=== PATIENT | female | born 1980 | race Caucasian/White ===

== ENCOUNTER 2019-10-01 13:28 | Inpatient (IN) | payer OTHER ==
--- NOTE | 2019-10-01 16:25 | BHS.RME ---
Substance Use & Tx History - Substance Use History Alcohol Substance amount: 1 pint vodka, 6 cans beers Frequency of use: Daily (x 5 months) Substance route: Oral Date of Last Use: 09/30/19 (11:30 p.m. ) Cocaine (Powder) Substance amount: 2 bags Frequency of use: Less than 3 times per week Substance route: Inhalation (ex: sniffing or snorting) Date of Last Use: 10/01/19 (7 a.m.) Opiates (Other) Substance amount: 16 mg Suboxone - Prescribed Frequency of use: Daily Substance route: Oral (Sublingual) Date of Last Use: 10/01/19 (9 a.m. ) Cannabis Substance amount: a few pulls Frequency of use: Less than 3 times per week Substance route: Inhalation (ex: sniffing or snorting) Date of Last Use: 09/29/19 - Last Treatment Date of last treatment: 2018 Treatment type: Substance Use Disorder (BHAVYA) Where was last treatment: [facility]ox ([facility] for [facility] and cocaine) Physical/Psych/Mental Status - Behavior Eye Contact: Normal - Cooperativeness Cooperativeness: Cooperative - Thinking Thought Processes: Goal Directed Thought content: Future oriented - Physical Health Problems Is patient presently having any pain?: No (Back and ovaries - chronic) Does patient presently have any injuries (include location): No Does patient currently have a fever: No Is patient : No CIWA Nausea/Vomitin-Mild Nausea/No Vomiting Muscle Tremors: 4-Moderate,w/Arms Extend Anxiety: 2 Agitation: 1-Slight > Activity Paroxysmal Sweats: No Perspiration Orientation: 0-Oriented Tacttile Disturbances: 0-None Auditory Disturbances: 0-None Visual Disturbances: 0-None Headache: 0-None Present CIWA-Ar Total Score: 8
[2019-10-01 16:58] VITALS: BMI 30.1
--- NOTE | 2019-10-01 18:04 | HP ---
CIWA Score Nausea/Vomitin-Mild Nausea/No Vomiting Muscle Tremors: 4-Moderate,w/Arms Extend Anxiety: 2 Agitation: 1-Slight > Activity Paroxysmal Sweats: 2 Orientation: 0-Oriented Tacttile Disturbances: 0-None Auditory Disturbances: 0-None Visual Disturbances: 0-None Headache: 3-Moderate CIWA-Ar Total Score: 13 - Admission Criteria OASAS Guidelines: Admission for Medically Managed Detox: Requires at least one of the followin. CIWA greater than 12 2. Seizures within the past 24 hours 3. Delirium tremens within the past 24 hours 4. Hallucinations within the past 24 hours 5. Acute intervention needed for co occurring medical disorder 6. Acute intervention needed for co occurring psychiatric disorder 7. Severe withdrawal that cannot be handled at a lower level of care (continued vomiting, continued diarrhea, abnormal vital signs) requiring intravenous medication and/or fluids 8. Patient presents the following: CIWA greater than 12 Admission Criteria Met: Admission criteria met Admission ROS BHS - HPI Chief Complaint: I want to stop using drugs and drinking. Allergies/Adverse Reactions: Allergies Allergy/AdvReac Type Severity Reaction Status Date / Time No Known Allergies Allergy Verified 10/01/19 18:12 History of Present Illness: 39 year old woman presents to this facility for the fisrt time for alcohol detox. She reports her last treatment was at the addiction institute at [facility]. She is on suboxone 8mg BID. Exam Limitations: No Limitations - Ebola screening Have you traveled outside of the country in the last 21 days: No Have you had contact with anyone from an Ebola affected area: No Have you been sick,other than usual withdrawal symptoms: No Do you have a fever: No - Review of Systems Constitutional: Chills, Night Sweats, Weight Stable EENT: reports: Dental Problems (pain) Respiratory: reports: SOB with Exertion Cardiac: reports: Edema (to bilateral LE, chronic for the past 21 years) GI: reports: Nausea, Poor Fluid Intake, Vomiting, Indigestion, Abdominal cramping : reports: No Symptoms Reported Musculoskeletal: reports: Back Pain, Joint Pain, Muscle Weakness Integumentary: reports: Sweating Neuro: reports: Headache, Tremors Endocrine: reports: No Symptoms Reported Hematology: reports: Anemia Psychiatric: reports: Anxious, Depressed Other Systems: Reviewed and Negative Patient History - Patient Medical History Hx Anemia: No Hx Asthma: Yes Hx Chronic Obstructive Pulmonary Disease (COPD): No Hx Cancer: No Hx Cardiac Disorders: No Hx Congestive Heart Failure: No Hx Hypertension: No Hx Hypercholesterolemia: No Hx Pacemaker: No HX Cerebrovascular Accident: No Hx Seizures: No Hx Dementia: No Hx Diabetes: No Hx Gastrointestinal Disorders: Yes (GERD) Hx Liver Disease: No Hx Genitourinary Disorders: No Hx Sexually Transmitted Disorders: No Hx Renal Disease (ESRD): No Hx Thyroid Disease: No Hx Human Immunodeficiency Virus (HIV): No Hx Hepatitis C: No Hx Depression: Yes Hx Suicide Attempt: Yes (in 2019, took any pills, denies SI now) Hx Bipolar Disorder: Yes Hx Schizophrenia: No - Patient Surgical History Past Surgical History: Yes Hx Abdominal Surgery: Yes (gastric bypass in 2011) Anesthesia Reaction: No - PPD History Previous Implant?: Yes Documented Results: Positive w/o proof Implanted On Prior R Admission?: No PPD to be Administered?: No - Reproductive History Patient is a Female of Child Bearing Age (11 -55 yrs old): Yes Last Menstrual Period: 09/15/19 Patient : No - Smoking Cessation Smoking history: Current every day smoker Have you smoked in the past 12 months: Yes Aproximately how many cigarettes per day: 10 Hx Chewing Tobacco Use: No Initiated information on smoking cessation: Yes 'Breaking Loose' booklet given: 10/01/19 - Substances abused Alcohol Substance route: Oral Frequency: Daily Amount used: 1 P[place]ODKA Age of first use: 16 Date of last use: 09/30/19 Admission Physical Exam BHS - Vital Signs Vital Signs: Vital Signs - 24 hr 10/01/19 16:56 Temperature 96.6 F L Pulse Rate 68 Respiratory 16 Rate Blood Pressure 116/77 - Physical General Appearance: Yes: No Apparent Distress HEENTM: Yes: Hearing grossly Normal, Normocephalic, Normal Voice, Pharynx Normal Respiratory: Yes: Chest Non-Tender, Lungs Clear, Normal Breath Sounds, No Respiratory Distress, No Accessory Muscle Use Neck: Yes: No masses,lesions,Nodules, Supple Breast: Yes: Breast Exam Deferred Cardiology: Yes: Regular Rhythm, Regular Rate, S1, S2 Abdominal: Yes: Normal Bowel Sounds, Soft Genitourinary: Yes: Within Normal Limits Back: Yes: Normal Inspection Musculoskeletal: Yes: full range of Motion, Gait Steady, Back pain, Muscle Pain, Muscle weakness Extremities: Yes: Tremors, Pedal Edema Neurological: Yes: well digger II-XII NML intact, Fully Oriented, Alert, Normal Mood/Affect, Normal Response Integumentary: Yes: Moist, Pitting Edema Lymphatic: Yes: Within Normal Limits - Diagnostic (1) Alcohol dependence, uncomplicated Current Visit: Yes Status: Acute (2) Nicotine dependence Current Visit: Yes Status: Acute Qualifiers: Nicotine product type: cigarettes Substance use status: uncomplicated Qualified Code(s): F17.210 - Nicotine dependence, cigarettes, uncomplicated (3) Cocaine abuse Current Visit: Yes Status: Acute (4) Marijuana abuse Current Visit: Yes Status: Acute (5) Encounter for monitoring Suboxone maintenance therapy Current Visit: Yes Status: Chronic Cleared for Admission S - Detox or Rehab [facility] Level of Care: Medically Managed Detox Regimen/Protocol: Librium Claeared for Rehab Admission: No Breathalyzer - Breathalyzer Breathalyzer: 0 Urine Drug Screen - Test Device Lot number: [id number] Expiration date: 06/24/21 - Control Is test valid?: Yes - Results Drug screen NEGATIVE: No Urine drug screen results: THC-Marijuana, OUMAR-Cocaine, BUP-Suboxone Inpatient Rehab Admission - Rehab Decision to Admit Inpatient rehab admission?: No
[2019-10-01] MEDS ORDERED: MAG HYDROX/AL HYDROX/SIMETH 30 ML UNIT-DOSE CUP PO PRN (18:12)
[2019-10-01] MEDS ORDERED: ONDANSETRON *ODT* 4 MG TABLET SL ONE (18:12)
[2019-10-01] MEDS ORDERED: ACETAMINOPHEN 325 MG TABLET (FP) PO PRN ×2 (18:12)
[2019-10-01] MEDS ORDERED: MAGNESIUM CITRATE 300 ML BOTTLE PO PRN (18:12)
[2019-10-01] MEDS ORDERED: MENTHOL/PHENOL 1 EACH UD MM PRN (18:12)
[2019-10-01] MEDS ORDERED: BISMUTH SUBSALICYLATE 524 MG/30 ML UD PO PRN (18:12)
[2019-10-01] MEDS ORDERED: chlordiazePOXIDE HCL 10 MG CAPSULE PO PRN (18:12)
[2019-10-01] MEDS ORDERED: MAGNESIUM HYDROX 2400MG/30ML ORAL SUSPENSION 30 ML CUP PO PRN (18:12)
[2019-10-01] MEDS: IBUPROFEN 400 MG TABLET (FP) PO PRN (19:13)
[2019-10-01] MEDS ORDERED: MELATONIN 5 MG TABLETS PO SCH (22:00)
[2019-10-01] MEDS: BUPRENORPHINE/NALOXONE 8 MG/2 MG FILM PACKET SL SCH (22:37)
[2019-10-01] MEDS: THIAMINE HCL 100 MG TABLET (FP) PO SCH (22:38)
[2019-10-01] MEDS: hydrOXYzine PAMOATE 25 MG CAPSULE (FP) PO SCH (22:38)
[2019-10-01] MEDS: chlordiazePOXIDE HCL 25 MG CAPSULE PO SCH (22:38)
[2019-10-01] MEDS: METHOCARBAMOL 500 MG TABLET PO PRN (22:39)
[2019-10-02] MEDS: hydrOXYzine PAMOATE 25 MG CAPSULE (FP) PO SCH ×2 (06:41→10:53)
[2019-10-02] MEDS: IBUPROFEN 400 MG TABLET (FP) PO PRN ×2 (06:41→14:51)
[2019-10-02] MEDS: chlordiazePOXIDE HCL 25 MG CAPSULE PO SCH ×3 (06:41→22:35)
[2019-10-02] MEDS ORDERED: IBUPROFEN 400 MG TABLET (FP) PO ONE (07:49)
[2019-10-02 10:17] LABS: HEMATOCRIT 25.1 % (32.4-45.2); HEMOGLOBIN 7.2 GM/dL (10.7-15.3); MCHC 28.6 g/dl (32.0-36.0); MEAN CELL VOLUME 65.1 fl (80-96); MEAN PLT VOLUME 9.9 fl (7.5-11.1); PLATELET COUNT 460 K/MM3 (134-434); RBC 3.85 M/mm3 (3.60-5.2); RDW 20.3 % (11.6-15.6); WHITE BLOOD COUNT 7.9 K/mm3 (4.0-10.0)
[2019-10-02 10:20] LABS: MCH 18.6 pg (25.7-33.7)
[2019-10-02] MEDS ORDERED: hydrOXYzine PAMOATE 25 MG CAPSULE (FP) PO PRN (10:26)
[2019-10-02 10:32] LABS: ALBUMIN 3.5 g/dl (3.4-5.0); BILIRUBIN,TOTAL 0.7 mg/dL (0.2-1); BLOOD UREA NITROGEN 10.1 mg/dL (7-18); CALCIUM 9.1 mg/dL (8.5-10.1); CREATININE 0.7 mg/dL (0.55-1.3); POTASSIUM 4.3 mmol/L (3.5-5.1); TOT PROT 7.3 g/dl (6.4-8.2)
[2019-10-02] MEDS: BUPRENORPHINE/NALOXONE 8 MG/2 MG FILM PACKET SL SCH ×2 (10:51→21:47)
[2019-10-02] MEDS: PRENATAL VITAMINS W/ FOLIC ACID TABLET (FP) PO SCH (10:52)
--- NOTE | 2019-10-02 12:29 | PN ---
[facility] CIWA - CIWA Score Nausea/Vomitin-No Nausea/No Vomiting Muscle Tremors: 3 Anxiety: 2 Agitation: 3 Paroxysmal Sweats: 2 Orientation: 0-Oriented Tacttile Disturbances: 0-None Auditory Disturbances: 0-None Visual Disturbances: 0-None Headache: 0-None Present CIWA-Ar Total Score: 10 [facility] Progress Note (SOAP) Subjective: headache tooth ache sweats chills interrupted sleep Objective: 10/02/19 12:25 Vital Signs Temperature 98.6 F 10/02/19 08:52 Pulse Rate 66 10/02/19 08:52 Respiratory Rate 18 10/02/19 08:52 Blood Pressure 117/63 10/02/19 08:52 O2 Sat by Pulse Oximetry (%) Laboratory Tests 10/01/19 10/02/19 10/02/19 17:03 07:50 07:50 WBC 7.9 RBC 3.85 Hgb 7.2 L Hct 25.1 L MCV 65.1 L MCH 18.6 L MCHC 28.6 L RDW 20.3 H Plt Count 460 H MPV 9.9 Sodium 138 Potassium 4.3 Chloride 107 Carbon Dioxide 27 Anion Gap 5 L BUN 10.1 Creatinine 0.7 Est GFR (CKD-EPI)AfAm 124.73 Est GFR (CKD-EPI)NonAf 107.62 Random Glucose 98 Calcium 9.1 Total Bilirubin 0.7 AST 14 L ALT 18 Alkaline Phosphatase 82 Total Protein 7.3 Albumin 3.5 POC Urine HCG, Qual Negative RPR Titer 10/02/19 07:50 WBC RBC Hgb Hct MCV MCH MCHC RDW Plt Count MPV Sodium Potassium Chloride Carbon Dioxide Anion Gap BUN Creatinine Est GFR (CKD-EPI)AfAm Est GFR (CKD-EPI)NonAf Random Glucose Calcium Total Bilirubin AST ALT Alkaline Phosphatase Total Protein Albumin POC Urine HCG, Qual RPR Titer Nonreactive labs noted low H:H; anemia noted iron supplement ordered aaox3 ambulating no acute distress Assessment: 10/02/19 12:27 withdrawals tooth area appear decay/gum swelling. no pus noted. Plan: continue detox irons supplements ordered Augmentin ordered anbesol prn motrin 800mg prn
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
[2019-10-02] MEDS: GABAPENTIN 300 MG CAPSULE PO SCH ×2 (14:51→21:47)
[2019-10-02] MEDS: ESCITALOPRAM OXALATE 10 MG TABLET PO SCH (14:55)
[2019-10-02] MEDS: BENZOCAINE 20 % GEL TUBE MM PRN ×2 (16:28→22:32)
[2019-10-02] MEDS ORDERED: AMOX TR/POT CLAV 500MG/125MG TABLETS (FP) PO SCH (17:30)
[2019-10-02] MEDS: AMOX TR/POT CLAV 875MG/125MG TABLETS (FP) PO SCH (18:32)
[2019-10-02] MEDS: METHOCARBAMOL 500 MG TABLET PO PRN (21:47)
[2019-10-02] MEDS: ARIPiprazole 10 MG TABLET PO SCH (21:47)
[2019-10-02] MEDS: THIAMINE HCL 100 MG TABLET (FP) PO SCH (21:47)
[2019-10-02] MEDS: SUVOREXANT 10 MG TABLET PO PRN (22:31)
[2019-10-03] MEDS: IBUPROFEN 400 MG TABLET (FP) PO PRN ×3 (00:57→16:51)
[2019-10-03] MEDS: chlordiazePOXIDE 5 MG CAPSULE PO SCH ×3 (06:12→21:28)
[2019-10-03] MEDS: AMOX TR/POT CLAV 875MG/125MG TABLETS (FP) PO SCH ×2 (07:29→16:51)
[2019-10-03] MEDS: GABAPENTIN 300 MG CAPSULE PO SCH ×2 (10:30→21:28)
[2019-10-03] MEDS: ESCITALOPRAM OXALATE 10 MG TABLET PO SCH (10:30)
[2019-10-03] MEDS: PRENATAL VITAMINS W/ FOLIC ACID TABLET (FP) PO SCH (10:30)
[2019-10-03] MEDS: BUPRENORPHINE/NALOXONE 8 MG/2 MG FILM PACKET SL SCH ×2 (10:31→21:28)
--- NOTE | 2019-10-03 12:43 | PN ---
S CIWA - CIWA Score Nausea/Vomitin-No Nausea/No Vomiting Muscle Tremors: 3 Anxiety: 1-Mildly Anxious Agitation: 2 Paroxysmal Sweats: 1-Minimal Palms Moist Orientation: 0-Oriented Tacttile Disturbances: 0-None Auditory Disturbances: 0-None Visual Disturbances: 0-None Headache: 0-None Present CIWA-Ar Total Score: 7 [facility] Progress Note (SOAP) Subjective: sweats tired interrupted sleep groggy Objective: 10/03/19 12:43 Vital Signs Temperature 98.1 F 10/03/19 08:47 Pulse Rate 75 10/03/19 08:47 Respiratory Rate 16 10/03/19 08:47 Blood Pressure 114/54 L 10/03/19 08:47 O2 Sat by Pulse Oximetry (%) Laboratory Tests 10/01/19 10/02/19 10/02/19 17:03 07:50 07:50 WBC 7.9 RBC 3.85 Hgb 7.2 L Hct 25.1 L MCV 65.1 L MCH 18.6 L MCHC 28.6 L RDW 20.3 H Plt Count 460 H MPV 9.9 Sodium 138 Potassium 4.3 Chloride 107 Carbon Dioxide 27 Anion Gap 5 L BUN 10.1 Creatinine 0.7 Est GFR (CKD-EPI)AfAm 124.73 Est GFR (CKD-EPI)NonAf 107.62 Random Glucose 98 Calcium 9.1 Total Bilirubin 0.7 AST 14 L ALT 18 Alkaline Phosphatase 82 Total Protein 7.3 Albumin 3.5 POC Urine HCG, Qual Negative RPR Titer 10/02/19 07:50 WBC RBC Hgb Hct MCV MCH MCHC RDW Plt Count MPV Sodium Potassium Chloride Carbon Dioxide Anion Gap BUN Creatinine Est GFR (CKD-EPI)AfAm Est GFR (CKD-EPI)NonAf Random Glucose Calcium Total Bilirubin AST ALT Alkaline Phosphatase Total Protein Albumin POC Urine HCG, Qual RPR Titer Nonreactive aaox3 ambulating no acute distress Assessment: 10/03/19 12:44 withdrawals Plan: continue detox but hold 10am librium increase fluids
[2019-10-03] MEDS: NICOTINE POLACRILEX 2 MG GUM BUC PRN ×2 (17:59→20:16)
[2019-10-03] MEDS: THIAMINE HCL 100 MG TABLET (FP) PO SCH (21:27)
[2019-10-03] MEDS: ARIPiprazole 10 MG TABLET PO SCH (21:29)
[2019-10-03] MEDS: SUVOREXANT 10 MG TABLET PO PRN (21:31)
[2019-10-04] MEDS ORDERED: chlordiazePOXIDE HCL 10 MG CAPSULE PO PRN
[2019-10-04] MEDS: chlordiazePOXIDE HCL 10 MG CAPSULE PO SCH ×3 (06:16→22:24)
[2019-10-04] MEDS: IBUPROFEN 400 MG TABLET (FP) PO PRN ×2 (06:23→18:18)
[2019-10-04] MEDS: NICOTINE POLACRILEX 2 MG GUM BUC PRN ×2 (06:45→17:05)
[2019-10-04] MEDS: AMOX TR/POT CLAV 875MG/125MG TABLETS (FP) PO SCH ×2 (07:10→17:04)
[2019-10-04] MEDS: ESCITALOPRAM OXALATE 10 MG TABLET PO SCH (10:30)
[2019-10-04] MEDS: GABAPENTIN 300 MG CAPSULE PO SCH ×2 (10:30→22:23)
[2019-10-04] MEDS: PRENATAL VITAMINS W/ FOLIC ACID TABLET (FP) PO SCH (10:30)
[2019-10-04] MEDS: BUPRENORPHINE/NALOXONE 8 MG/2 MG FILM PACKET SL SCH ×2 (10:31→22:25)
--- NOTE | 2019-10-04 11:46 | PN ---
S CIWA - CIWA Score Nausea/Vomitin-No Nausea/No Vomiting Muscle Tremors: 2 Anxiety: 1-Mildly Anxious Agitation: 1-Slight > Activity Paroxysmal Sweats: No Perspiration Orientation: 0-Oriented Tacttile Disturbances: 0-None Auditory Disturbances: 0-None Visual Disturbances: 0-None Headache: 0-None Present CIWA-Ar Total Score: 4 [facility] Progress Note (SOAP) Subjective: feeling better little anxiety Objective: 10/04/19 11:46 Vital Signs Temperature 98.3 F 10/04/19 09:08 Pulse Rate 77 10/04/19 09:08 Respiratory Rate 18 10/04/19 09:08 Blood Pressure 113/56 L 10/04/19 09:08 O2 Sat by Pulse Oximetry (%) aaox3 ambulating no acute distress Assessment: 10/04/19 11:46 mild withdrawals Plan: continue detox d/c in am
[2019-10-04] MEDS: BENZOCAINE 20 % GEL TUBE MM PRN (18:20)
[2019-10-04] MEDS: ARIPiprazole 10 MG TABLET PO SCH (22:24)
[2019-10-04] MEDS: THIAMINE HCL 100 MG TABLET (FP) PO SCH (22:25)
[2019-10-05] MEDS ORDERED: chlordiazePOXIDE HCL 10 MG CAPSULE PO ONE (05:00)
[2019-10-05] MEDS: NICOTINE POLACRILEX 2 MG GUM BUC PRN (06:16)
[2019-10-05] MEDS: AMOX TR/POT CLAV 875MG/125MG TABLETS (FP) PO SCH (07:03)
--- NOTE | 2019-10-05 09:07 | DS ---
[facility] Detox Discharge Summary Admission Date: 10/01/19 Discharge Date: 10/05/19 - History Present History: Alcohol Dependence, Cocaine Dependence - Physical Exam Results Vital Signs: Vital Signs Temperature 98.2 F 10/05/19 06:00 Pulse Rate 70 10/05/19 06:00 Respiratory Rate 18 10/05/19 06:00 Blood Pressure 98/62 10/05/19 06:00 O2 Sat by Pulse Oximetry (%) Pertinent Admission Physical Exam Findings: Vital Signs Temperature 98.2 F 10/05/19 06:00 Pulse Rate 70 10/05/19 06:00 Respiratory Rate 18 10/05/19 06:00 Blood Pressure 98/62 10/05/19 06:00 O2 Sat by Pulse Oximetry (%) Laboratory Tests 10/01/19 10/02/19 10/02/19 17:03 07:50 07:50 WBC 7.9 RBC 3.85 Hgb 7.2 L Hct 25.1 L MCV 65.1 L MCH 18.6 L MCHC 28.6 L RDW 20.3 H Plt Count 460 H MPV 9.9 Sodium 138 Potassium 4.3 Chloride 107 Carbon Dioxide 27 Anion Gap 5 L BUN 10.1 Creatinine 0.7 Est GFR (CKD-EPI)AfAm 124.73 Est GFR (CKD-EPI)NonAf 107.62 Random Glucose 98 Calcium 9.1 Total Bilirubin 0.7 AST 14 L ALT 18 Alkaline Phosphatase 82 Total Protein 7.3 Albumin 3.5 POC Urine HCG, Qual Negative RPR Titer T.pallidum Ab Interpret 10/02/19 10/02/19 07:50 07:50 WBC RBC Hgb Hct MCV MCH MCHC RDW Plt Count MPV Sodium Potassium Chloride Carbon Dioxide Anion Gap BUN Creatinine Est GFR (CKD-EPI)AfAm Est GFR (CKD-EPI)NonAf Random Glucose Calcium Total Bilirubin AST ALT Alkaline Phosphatase Total Protein Albumin POC Urine HCG, Qual RPR Titer Nonreactive T.pallidum Ab Interpret Cancelled aaox3 ambulating no acute distress lungs CTA - Treatment Hospital Course: Detox Protocol Followed, Detoxed Safely, Responded well, Disch arged Condition Good, Rehab Referral Accepted - Medication Discharge Medications: Ambulatory Orders Buprenorphine/Naloxone [Suboxone 8 mg/2Mg Sl Film -] 1 each SL BID 10/01/19 Escitalopram Oxalate [Lexapro -] 5 mg PO DAILY 10/01/19 Gabapentin 300 mg PO TID 10/01/19 - Diagnosis (1) Alcohol dependence, uncomplicated Current Visit: Yes Status: Chronic (2) Cocaine abuse Current Visit: Yes Status: Acute (3) Marijuana abuse Current Visit: Yes Status: Acute (4) Substance-induced sleep disorder Current Visit: Yes Status: Acute (5) Bipolar II disorder Current Visit: Yes Status: Chronic (6) Encounter for monitoring Suboxone maintenance therapy Current Visit: Yes Status: Chronic (7) GERD (gastroesophageal reflux disease) Current Visit: Yes Status: Chronic (8) Nicotine dependence Current Visit: Yes Status: Chronic Qualifiers: Nicotine product type: cigarettes Substance use status: uncomplicated Qualified Code(s): F17.210 - Nicotine dependence, cigarettes, uncomplicated (9) Opioid dependence on agonist therapy Current Visit: Yes Status: Chronic (10) PPD positive Current Visit: Yes Status: Chronic (11) PTSD (post-traumatic stress disorder) Current Visit: Yes Status: Chronic - AMA Did Patient Leave Against Medical Advice: No
[2019-10-05 12:21] VITALS: BP 110/61; PULSE 78; TEMP 98.4
== END 2019-10-05 09:55 | disposition home or self-care (01) | DRG 897 ==
LOC: YASAS 13:28 → Y6N 18:38
PROVIDERS: ADMIT Allergy & Immunology; ATTEND Allergy & Immunology
PROC: HZ2ZZZZ Detoxification Services for Substance Abuse Treatment (ICD-10-PCS; principal; 2019-10-01)
DX: F10.230 Alcohol dependence with withdrawal, uncomplicated (principal); F11.20 Opioid dependence, uncomplicated; F19.282 Other psychoactive substance dependence with psychoactive substance-induced sleep disorder; F31.81 Bipolar II disorder; F14.10 Cocaine abuse, uncomplicated; F12.10 Cannabis abuse, uncomplicated; F17.210 Nicotine dependence, cigarettes, uncomplicated; F43.10 Post-traumatic stress disorder, unspecified; D64.9 Anemia, unspecified; K21.9 Gastro-esophageal reflux disease without esophagitis; J45.909 Unspecified asthma, uncomplicated; M54.5 Low back pain; R76.11 Nonspecific reaction to tuberculin skin test without active tuberculosis; Z62.810 Personal history of physical and sexual abuse in childhood; Z51.81 Encounter for therapeutic drug level monitoring; Z56.0 Unemployment, unspecified; Z91.5 Personal history of self-harm; Z91.410 Personal history of adult physical and sexual abuse; Z98.84 Bariatric surgery status
CPT/HCPCS: 36415; 71046-TC-FY; 80053; 81025; 85027; 86593